=== PATIENT | male | born 1935 | race Caucasian/White ===

== ENCOUNTER 2017-08-19 06:33 | Inpatient (IN) | payer MEDICAID ==
[~2017-08-19] VITALS: Ht 167.6 cm; Wt 69.7 kg
[2017-08-19] MEDS ORDERED: ONDANSETRON HCL 4MG/2ML VIAL IV STA (07:52)
[2017-08-19] MEDS ORDERED: MORPHINE SULFATE 4 MG/ML CPJ (NOT FOR IM USE) IV STA (07:52)
[2017-08-19 08:26] LABS: HEMATOCRIT. 40.7 % (42.0-52.0); HEMOGLOBIN. 13.8 g/dL (14.0-18.0); MEAN CORPUSCULAR HEMOGLOBIN 31.2 pg (28.0-32.0); MEAN CORPUSCULAR VOLUME 91.8 fL (80.0-94.0); MEAN PLATELET VOLUME 7.6 fl (7.4-10.4); PLATELET 233 x1000/uL (130-400); RED BLOOD CELL COUNT 4.44 mill/uL (4.7-6.1); RED CELL DISTRIBUTION WIDTH 12.5 % (11.6-14.6)
[2017-08-19 08:38] LABS: INR 1.1; PARTIAL THROMBOPLASTIN TIME 26.9 sec (23.4-31.0); PROTHROMBIN TIME 11.3 sec (9.4-11.6)
[2017-08-19 08:41] LABS: CARBON DIOXIDE 23 mEq/L (21-32); CHLORIDE 94 mEq/L (98-107); TROPONIN I < 0.02 ng/mL (0.00-0.04)
[2017-08-19 08:42] LABS: CLARITY URINE CLEAR (CLEAR); COLOR URINE AMBER (YELLOW); GLUCOSE URINE 1+ (NEGATIVE); PROTEIN URINE 3+ (NEGATIVE); SPECIFIC GRAVITY URINE 1.023 (1.005-1.030)
[2017-08-19 08:43] LABS: KETONES URINE TRACE (NEGATIVE); LEUKOCYTE ESTERASE URINE 1+ (NEGATIVE); NITRITE URINE NEGATIVE (NEGATIVE); OCCULT BLOOD URINE NEGATIVE (NEGATIVE)
[2017-08-19 09:27] LABS: PLATELET ESTIMATE NORMAL
[2017-08-19] MEDS ORDERED: METRONIDAZOLE 500 MG PREMIX 100 ML IV ONE (10:45)
[2017-08-19] MEDS ORDERED: PIPERACILLIN/TAZOBACTAM 3.375GM/50ML PREMIX IV ONE (10:45)
[2017-08-19] MEDS ORDERED: BUPIVACAINE HCL 0.5% (5MG/ML) 50ML ONE (11:26)
[2017-08-19] MEDS ORDERED: SKIN ADHESIVE 0.7 GM EA TOP ONE (11:26)
[2017-08-19] MEDS ORDERED: MIDAZOLAM HCL 2 MG/2 ML VIAL ONE (12:20)
[2017-08-19] MEDS ORDERED: FENTANYL CITRATE/PF 50MCG/ML 2ML VIAL ONE (12:20)
[2017-08-19] MEDS ORDERED: ONDANSETRON HCL 4MG/2ML VIAL IV PRN ×3 (12:30→15:00)
[2017-08-19] MEDS ORDERED: MORPHINE SULFATE 4 MG/ML CPJ (NOT FOR IM USE) IV PRN ×3 (12:30→15:00)
[2017-08-19] MEDS ORDERED: LEVOFLOXACIN 500MG PREMIX 100 ML IV ONE (12:38)
[2017-08-19] MEDS ORDERED: HYDROMORPHONE HCL/PF 2MG/ML CPJ IV PRN (13:15)
[2017-08-19] MEDS ORDERED: MEPERIDINE HCL/PF 25MG/ML CPJ IV PRN (13:15)
[2017-08-19] MEDS ORDERED: LABETALOL HCL 20MG/4ML CARPUJECT IV PRN (13:15)
[2017-08-19] MEDS ORDERED: SODIUM CHLORIDE 0.9% 10ML VIAL ONE (13:23)
[2017-08-19] MEDS ORDERED: IOHEXOL-300 100 ML BOTTLE ONE (13:23)
[2017-08-19] MEDS: IPRATROPIUM/ALBUTEROL 0.5-3(2.5)MG/3ML NEB INH PRN (14:08)
[2017-08-19] MEDS ORDERED: HYDROCODONE/ACETAMINOPHEN 5/325MG TABLET PO PRN ×2 (15:00)
[2017-08-19] MEDS ORDERED: ACETAMINOPHEN 650MG SUPP PR PRN (15:00)
[2017-08-19] MEDS ORDERED: ACETAMINOPHEN 325MG TABLET PO PRN (15:00)
[2017-08-19 18:00] VITALS: BP_SYST 141; BP_SYST 145; BP_DIAS 81
[2017-08-19 20:00] VITALS: BP 153/77
[2017-08-19] MEDS: SODIUM CHLORIDE 0.9% 1,000 ML IV SCH (21:23)
[2017-08-19 22:00] VITALS: BP 141/70
[2017-08-19] MEDS: SODIUM CHLORIDE 0.9% INJ 3ML FLUSH IVF SCH (22:13)
[2017-08-20] VITALS (12 sets, daily range): BP systolic 124–159; BP diastolic 60–81
[2017-08-20] MEDS: DEXT 5%/0.45% NACL KCL 20MEQ/L 1,000 ML IV SCH ×3 (00:15→12:35)
[2017-08-20] MEDS: SODIUM CHLORIDE 0.9% INJ 3ML FLUSH IVF SCH ×3 (05:28→21:36)
[2017-08-20] MEDS: BLOOD SUGAR DIAGNOSTIC STRIP TEST SCH ×4 (06:00→23:45)
[2017-08-20] MEDS ORDERED: DEXTROSE 50% WATER 50ML SYRINGE IV PRN ×2 (06:00→06:15)
[2017-08-20] MEDS: INSULIN LISPRO 100 UNITS/ML SUBCUT SCH ×3 (06:33→18:00)
[2017-08-20 06:53] LABS: HEMATOCRIT. 35.1 % (42.0-52.0); HEMOGLOBIN. 11.8 g/dL (14.0-18.0); MEAN CORPUSCULAR HEMOGLOBIN 31.3 pg (28.0-32.0); MEAN CORPUSCULAR VOLUME 92.9 fL (80.0-94.0); MEAN PLATELET VOLUME 7.9 fl (7.4-10.4); PLATELET 204 x1000/uL (130-400); RED BLOOD CELL COUNT 3.78 mill/uL (4.7-6.1); RED CELL DISTRIBUTION WIDTH 12.8 % (11.6-14.6)
[2017-08-20] MEDS ORDERED: ASPI-1159 PO (07:26)
[2017-08-20] MEDS ORDERED: ATEN100T PO (07:26)
[2017-08-20] MEDS ORDERED: METF500T4 PO (07:26)
[2017-08-20] MEDS ORDERED: AMLO10TA80 PO (07:26)
[2017-08-20] MEDS ORDERED: FINA5TAB11 PO (07:26)
[2017-08-20] MEDS ORDERED: LOSA100T14 PO (07:26)
[2017-08-20] MEDS ORDERED: ZINC50TA62 PO (07:26)
[2017-08-20] MEDS ORDERED: ALFU10TA9 PO (07:26)
[2017-08-20] MEDS ORDERED: BLOOD SUGAR DIAGNOSTIC STRIP TEST SCH (07:30)
[2017-08-20] MEDS ORDERED: INSULIN LISPRO 100 UNITS/ML SUBCUT SCH (08:00)
[2017-08-20] MEDS ORDERED: INFLUENZA VIRUS VACCINE 0.5ML SYR IM ONE (08:00)
[2017-08-20] MEDS ORDERED: ZOSYN XX SCH (13:30)
[2017-08-20] MEDS: DILTIAZEM HCL 60MG TABLET PO SCH ×2 (14:23→21:42)
[2017-08-20] MEDS: SODIUM CHLORIDE 0.9% 1,000 ML IV SCH (14:44)
[2017-08-20] MEDS: PIPERACILLIN/TAZ 3.375G PREMIX 50 ML IV SCH ×2 (15:10→23:45)
[2017-08-20 15:32] LABS: CARBON DIOXIDE 24 mEq/L (21-32); CHLORIDE 105 mEq/L (98-107)
[2017-08-20 17:11] LABS: PLATELET ESTIMATE NORMAL
[2017-08-21] VITALS (13 sets, daily range): BP systolic 126–165; BP diastolic 66–81
[2017-08-21] MEDS: INSULIN LISPRO 100 UNITS/ML SUBCUT SCH ×4 (00:06→17:20)
[2017-08-21] MEDS: PIPERACILLIN/TAZ 3.375G PREMIX 50 ML IV SCH ×3 (05:32→17:20)
[2017-08-21] MEDS: SODIUM CHLORIDE 0.9% INJ 3ML FLUSH IVF SCH ×3 (05:33→21:00)
[2017-08-21] MEDS: DILTIAZEM HCL 60MG TABLET PO SCH ×3 (05:38→20:59)
[2017-08-21] MEDS: BLOOD SUGAR DIAGNOSTIC STRIP TEST SCH ×3 (05:39→17:16)
[2017-08-21] MEDS: SODIUM CHLORIDE 0.9% 1,000 ML IV SCH ×2 (05:55→19:00)
[2017-08-21 06:54] LABS: HEMATOCRIT. 37.4 % (42.0-52.0); HEMOGLOBIN. 12.5 g/dL (14.0-18.0); MEAN CORPUSCULAR HEMOGLOBIN 31.3 pg (28.0-32.0); MEAN CORPUSCULAR VOLUME 93.3 fL (80.0-94.0); MEAN PLATELET VOLUME 8.2 fl (7.4-10.4); PLATELET 212 x1000/uL (130-400); RED BLOOD CELL COUNT 4.01 mill/uL (4.7-6.1); RED CELL DISTRIBUTION WIDTH 12.9 % (11.6-14.6)
[2017-08-21 07:12] LABS: CARBON DIOXIDE 24 mEq/L (21-32)
[2017-08-21 07:30] LABS: CHLORIDE 103 mEq/L (98-107)
[2017-08-21] MEDS ORDERED: POTASSIUM CHLORIDE 20MEQ/PACKET PO NR (07:45)
[2017-08-21] MEDS: IPRATROPIUM/ALBUTEROL 0.5-3(2.5)MG/3ML NEB INH PRN ×2 (09:17→12:55)
[2017-08-21] MEDS: ATENOLOL 50 MG TABLET PO SCH ×2 (09:32→20:59)
[2017-08-21] MEDS: ALUMINUM HYDROXIDE 120ML BOTTLE PO SCH ×2 (12:20→17:21)
[2017-08-21 17:01] LABS: PLATELET ESTIMATE NORMAL
[2017-08-22] VITALS (15 sets, daily range): BP systolic 117–171; BP diastolic 52–84
[2017-08-22] MEDS: ALUMINUM HYDROXIDE 120ML BOTTLE PO SCH ×3 (00:23→12:42)
[2017-08-22] MEDS: PIPERACILLIN/TAZ 3.375G PREMIX 50 ML IV SCH ×3 (00:23→12:22)
[2017-08-22] MEDS: BLOOD SUGAR DIAGNOSTIC STRIP TEST SCH ×3 (00:24→12:00)
[2017-08-22] MEDS: INSULIN LISPRO 100 UNITS/ML SUBCUT SCH ×3 (00:24→12:48)
[2017-08-22] MEDS: SODIUM CHLORIDE 0.9% 1,000 ML IV SCH (00:27)
[2017-08-22] MEDS: DILTIAZEM HCL 60MG TABLET PO SCH ×2 (05:26→15:08)
[2017-08-22] MEDS: SODIUM CHLORIDE 0.9% INJ 3ML FLUSH IVF SCH ×2 (05:26→15:08)
[2017-08-22 07:08] LABS: HEMATOCRIT. 38.1 % (42.0-52.0); HEMOGLOBIN. 12.7 g/dL (14.0-18.0); MEAN CORPUSCULAR HEMOGLOBIN 31.4 pg (28.0-32.0); MEAN PLATELET VOLUME 7.8 fl (7.4-10.4); PLATELET 262 x1000/uL (130-400); RED BLOOD CELL COUNT 4.05 mill/uL (4.7-6.1); RED CELL DISTRIBUTION WIDTH 12.9 % (11.6-14.6)
[2017-08-22 07:49] LABS: CARBON DIOXIDE 26 mEq/L (21-32); CHLORIDE 102 mEq/L (98-107)
[2017-08-22] MEDS: ATENOLOL 50 MG TABLET PO SCH (08:13)
[2017-08-22 08:19] LABS: NUCLEATED RED BLOOD CELLS 1 /100 WBC; PLATELET ESTIMATE NORMAL
[2017-08-22] MEDS ORDERED: IPRATROPIUM/ALBUTEROL 0.5-3(2.5)MG/3ML NEB HHN NR (15:30)
[2017-08-22] MEDS: IPRATROPIUM/ALBUTEROL 0.5-3(2.5)MG/3ML NEB INH PRN (15:36)
[2017-08-22] MEDS ORDERED: LEVO500T2 PO (16:10)
[2017-08-22] MEDS ORDERED: P20 PO (16:10)
[2017-08-22] MEDS ORDERED: ALBU6.7H INH (16:10)
== END 2017-08-22 19:00 | disposition home or self-care (01) | DRG 710 ==
LOC: ER 07:29 → 8WST 11:04 → EDBEDREQSVC 11:08 → EDBEDREQ 11:08 → ENRESERV 11:19 → 5EST 18:12
PROVIDERS: ADMIT Internal Medicine; ATTEND Internal Medicine
PROC: 0T7D7ZZ Dilation of Urethra, Via Natural or Artificial Opening (ICD-10-PCS; 2017-08-19)
PROC: 0DTJ4ZZ Resection of Appendix, Percutaneous Endoscopic Approach (ICD-10-PCS; principal; 2017-08-19 12:00)
DX: A41.9 Sepsis, unspecified organism (principal); E11.65 Type 2 diabetes mellitus with hyperglycemia; I11.9 Hypertensive heart disease without heart failure; E87.1 Hypo-osmolality and hyponatremia; K66.8 Other specified disorders of peritoneum; J44.9 Chronic obstructive pulmonary disease, unspecified; Z90.79 Acquired absence of other genital organ(s); K35.80 Unspecified acute appendicitis; E87.6 Hypokalemia; E05.90 Thyrotoxicosis, unspecified without thyrotoxic crisis or storm; E11.319 Type 2 diabetes mellitus with unspecified diabetic retinopathy without macular edema; H54.7 Unspecified visual loss; I45.10 Unspecified right bundle-branch block; N32.89 Other specified disorders of bladder; N40.1 Benign prostatic hyperplasia with lower urinary tract symptoms; R33.8 Other retention of urine; Z79.4 Long term (current) use of insulin; Z87.891 Personal history of nicotine dependence
CPT/HCPCS: 36415; 71010; 74177; 76857; 80048; 80053; 80061; 81001; 82962; 83690; 83735; 84443; 84484; 85025; 85610; 85730; 87040; 87076; 87086; 88304; 93005; 93306; 93970; 94002; 94640; 96374; 97110; 97116; 97163; 97166; 97167; 97530; 99285; A4216; A6261; J1815; J1956; J2250; J2270; J2405; J2543; J3010; J3490; J7030; J7620; Q9967; A4315

== ENCOUNTER 2017-11-03 09:34 | Emergency (ER) | payer MEDICAID ==
[~2017-11-03] VITALS: Ht 170.2 cm; Wt 70.0 kg
[~2017-11-03 09:34] MED LIST: ALBU6.7H INH; ALFU10TA9 PO; ASPI-1159 PO; FINA5TAB11 PO; LEVO500T2 PO; LOSA100T14 PO; METF500T4 PO; P20 PO; ZINC50TA62 PO
[2017-11-03 10:53] LABS: CLARITY URINE CLEAR (CLEAR); COLOR URINE YELLOW (YELLOW); KETONES URINE NEGATIVE (NEGATIVE); LEUKOCYTE ESTERASE URINE TRACE (NEGATIVE); NITRITE URINE NEGATIVE (NEGATIVE); OCCULT BLOOD URINE 2+ (NEGATIVE); PROTEIN URINE 2+ (NEGATIVE); SPECIFIC GRAVITY URINE 1.015 (1.005-1.030); UROBILINOGEN URINE 0.2 E.U./dL (0.2-1.0)
[2017-11-03] MEDS ORDERED: LEVOFLOXACIN 500MG TABLET PO ONE (12:15)
[2017-11-03 12:44] VITALS: BP 142/75
== END 2017-11-03 12:48 | disposition home or self-care (01) ==
LOC: ER 10:58
DX: N39.0 Urinary tract infection, site not specified (principal); N40.1 Benign prostatic hyperplasia with lower urinary tract symptoms; R33.8 Other retention of urine; I10 Essential (primary) hypertension; Z98.890 Other specified postprocedural states; Z79.82 Long term (current) use of aspirin; Z90.49 Acquired absence of other specified parts of digestive tract
CPT/HCPCS: 81001; 87086; 99284

== ENCOUNTER 2017-11-04 23:57 | Emergency (ER) | payer MEDICAID ==
[~2017-11-04] VITALS: Ht 170.2 cm; Wt 64.0 kg
[2017-11-05 02:18] VITALS: BP 133/56
== END 2017-11-05 03:15 | disposition home or self-care (01) ==
LOC: ER 23:57
DX: R33.9 Retention of urine, unspecified (principal); R30.0 Dysuria; I10 Essential (primary) hypertension; H54.7 Unspecified visual loss; H26.9 Unspecified cataract; Z79.82 Long term (current) use of aspirin; Z79.899 Other long term (current) drug therapy; Z98.890 Other specified postprocedural states
CPT/HCPCS: 51702; 87086; 99284; A4315

== ENCOUNTER 2017-11-22 20:09 | Emergency (ER) | payer MEDICAID ==
[~2017-11-22] VITALS: Ht 170.2 cm; Wt 65.0 kg
[2017-11-22 21:30] LABS: CLARITY URINE TURBID (CLEAR); COLOR URINE YELLOW (YELLOW); KETONES URINE TRACE (NEGATIVE); LEUKOCYTE ESTERASE URINE 3+ (NEGATIVE); NITRITE URINE NEGATIVE (NEGATIVE); OCCULT BLOOD URINE 3+ (NEGATIVE); PROTEIN URINE 2+ (NEGATIVE); SPECIFIC GRAVITY URINE 1.017 (1.005-1.030); UROBILINOGEN URINE 0.2 E.U./dL (0.2-1.0)
[2017-11-22] MEDS ORDERED: LEVOFLOXACIN 250MG TABLET PO ONE (21:45)
[2017-11-22 22:24] VITALS: BP 148/71
== END 2017-11-22 22:26 | disposition home or self-care (01) ==
LOC: ER 20:09
DX: Z46.6 Encounter for fitting and adjustment of urinary device (principal); N39.0 Urinary tract infection, site not specified; I10 Essential (primary) hypertension; E11.9 Type 2 diabetes mellitus without complications; Z79.82 Long term (current) use of aspirin
CPT/HCPCS: 81001; 99283

== ENCOUNTER 2019-12-26 12:13 | Emergency (ER) | payer MEDICAID ==
[~2019-12-26] VITALS: Ht 170.2 cm; Wt 63.6 kg
[~2019-12-26 12:13] MED LIST changes: -ALBU6.7H INH; +ALBU6.7H11 INH; -ASPI-1159 PO; +ASPI-1497 PO; -LOSA100T14 PO; +LOSA100T32 PO; +METF-414 PO; -METF500T4 PO
[2019-12-26] MEDS ORDERED: DIPHENHYDRAMINE 50MG CAPSULE PO ONE (15:00)
[2019-12-26] MEDS ORDERED: PREDNISONE 20MG TABLET PO ONE (15:00)
[2019-12-26] MEDS ORDERED: FAMOTIDINE 20MG TABLET PO ONE (15:00)
[2019-12-26 15:30] LABS: BASOPHILS % 0.9 % (0.0-2.0); EOSINOPHILS % 3.9 % (0.0-5.0); HEMATOCRIT. 37.2 % (42.0-52.0); HEMOGLOBIN. 12.3 g/dL (14.0-18.0); LYMPHOCYTES % 16.3 % (20.0-50.0); MEAN CORPUSCULAR HEMOGLOBIN 31.9 pg (28.0-32.0); MEAN CORPUSCULAR VOLUME 96.5 fL (80.0-94.0); MEAN PLATELET VOLUME 6.4 fl (7.4-10.4); MONOCYTES % 8.2 % (2.0-8.0); NEUTROPHILS % 70.7 % (40.0-76.0); PLATELET 438 x1000/uL (130-400); RED BLOOD CELL COUNT 3.85 mill/uL (4.7-6.1); RED CELL DISTRIBUTION WIDTH 13.5 % (11.6-14.6)
[2019-12-26 15:31] LABS: CHLORIDE 107 mEq/L (98-107)
[2019-12-26 15:33] LABS: CLARITY URINE CLEAR (CLEAR); COLOR URINE DARK YELLOW (YELLOW); KETONES URINE TRACE (NEGATIVE); LEUKOCYTE ESTERASE URINE NEGATIVE (NEGATIVE); NITRITE URINE NEGATIVE (NEGATIVE); OCCULT BLOOD URINE NEGATIVE (NEGATIVE); PROTEIN URINE 1+ (NEGATIVE); SPECIFIC GRAVITY URINE 1.023 (1.005-1.030); UROBILINOGEN URINE 0.2 E.U./dL (0.2-1.0)
[2019-12-26 16:26] VITALS: BP 133/60
== END 2019-12-26 17:40 | disposition home or self-care (01) ==
LOC: ER 12:13
DX: T78.40XA Allergy, unspecified, initial encounter (principal); X58.XXXA Exposure to other specified factors, initial encounter; E11.9 Type 2 diabetes mellitus without complications; I10 Essential (primary) hypertension; Z79.82 Long term (current) use of aspirin
CPT/HCPCS: 36415; 80053; 81003; 85025; 99284; J7512; Q0163; Z7610